=== PATIENT | female | born 1950 | race Caucasian/White ===

== ENCOUNTER 2025-05-01 13:46 | Outpatient (AMB) | payer MEDICARE, BC, SELFPAY ==
--- NOTE | 2025-05-01 13:51 | MHC.OFFVIS ---
Vital Signs 05/01/25 13:55 Height 5 ft 5 in Weight 176 lb 5.917 oz BMI 29.3 BP 138/82 Blood Pressure Location Lt brachial Position Sitting Pulse 79 Intake Visit Reasons: Esophageal hernia - r/s from 04/27 Intake Note: Lizabeth presents in the office as a new patient for a esophageal hernia. CC: States she was in the ED for a UTI and kidney stone. She states it was at [facility] in [place] - when they did the CT they found a para esophageal hernia. She has issues with eating - she gets full immediately. She has been diagnosed with the dumping syndrome - after eating she runsto the bathroom with diarrhea. Advertising Material Distributor Required: No Allergies clindamycin (From Cleocin) Allergy (Mild, Verified 05/01/25 13:55) Unknown metronidazole (From Flagyl) Allergy (Mild, Verified 05/01/25 13:55) Unknown HPI HPI Esophageal hernia - r/s from 04/27: Details: 75-year-old female here for initial evaluation of abdominal pain and an hiatal hernia discovered on an ER CAT scan. She is referred by [facility] who has not provided us with much medical background history. PMX Overweight-BMI 29 Migraines Peripheral vascular disease Fibromyalgia syndrome Nephrolithiasis Question ADHD Question depression Gastroparesis-followed by [facility] Atrophic vaginitis Positional tachycardia-negative dress echo 09/2024, negative stress test 06/2024 IBS * ALLERGIES CO Eliana-rash Flagyl-nausea * SURGICAL HISTORY ? Omi fund Ovarian cyst removed with a lot of adhesions cholecystectomy umbilical hernia repair Esophagogastroduodenoscopy-2016 [facility] COlonoscopy ? 2019 Varicose vein surgery-09/2019 * LABS: Provided by primary care office: 06/2024: Celiac screen is negative, unremarkable CBC, sed rate of 11, TSH 2.9, unremarkable renal panel, unremarkable hepatic panel, fasting glucose 90, lipase and amylase 20/40, mildly elevated total cholesterol of 238 with triglycerides at 01:26 REVIEW OF ESOPHAGOGASTRODUODENOSCOPY-2016 [facility] PROCEDURE IN DETAIL The regions examined were in the esophagus and 2nd portion of the duodenum. The findings were as follows: Exam of the esophagus was normal status post fundoplication, no residual hernia, fundoplication intact. Cold biopsy. Exam of the gastric cardia was normal. Procedure. None. Exam of the gastric fundus revealed a large amount of undigested food suggesting gastroparesis. Cold biopsy. Exam of the gastric antrum and pylorus was normal. Procedure: Cold biopsy for H pylori assay. Exam of the duodenal bulb was normal. Exam of the 2nd portion of the duodenum was normal. Follow-up recommended in the office with Gastroenterology and a gastric emptying study. * Surgical pathology 1. Duodenal biopsy -no pathologic abnormality -villous architecture is preserved 2. Stomach, antrum biopsy -antral mucosa with mild reactive/chemical gastropathy and mild inactive chronic gastritis 3. Gastroesophageal junction biopsy -squamocolumnar junction with reflux esophagitis -no evidence of complete intestinal metaplasia or dysplasia. H pylori assay is negative CT [facility] 03/31/2025 RESULT: CT Abdomen and Pelvis W/O Contrast CT of the abdomen and pelvis dated March 31, 2025. Comparison films are from October 26, 2016. HISTORY: Nausea and vomiting. Right flank pain. FINDINGS: CT imaging was performed with multislice acquisition from the dome of the diaphragm through the symphysis pubis without the use of oral or intravenous contrast material. Axial, coronal, and sagittal reconstruction was performed. A weight based protocol using automatic tube modulation was used to optimize exposure parameters. The liver is within normal limits for size. There is a simple cyst in the anterior segment of the right lobe of the liver measuring 2.5 cm on image 40 of series 2. This is stable. The gallbladder is surgically absent. The spleen is normal in size and appearance. The pancreas is normal in size and appearance. The adrenal glands are normal in size and appearance. The kidneys are normal in size. There is no evidence of calculus or obstruction. No intra-abdominal or retroperitoneal mass or lymphadenopathy is seen. No free air or free fluid is identified. Examination of the pelvis shows no evidence of mass or lymphadenopathy. No free air or free fluid is seen. Reproductive organs are age-appropriate. Although not contrast opacified, loops of bowel are normal in size. There is no evidence of obstruction. The appendix is normal. The body wall is intact. Atherosclerotic calcifications are present in the aorta. There is a moderate-sized type 3 paraesophageal hernia. There is a minimal left pleural effusion and a minimal pericardial effusion. Degenerative changes are noted in the spine. IMPRESSION: Minimal left pleural effusion and pericardial effusion. No evidence of renal calculus or obstruction. Stable hepatic cyst. Type III paraesophageal hernia. TODAY'S VISIT [facility] Medical History (Updated 05/01/25 @ 17:21 by CARLOS Márquez) History of cardiovascular stress test Surgical History (Updated 05/01/25 @ 17:21 by CARLOS Márquez) History of Omi fundoplication History of surgery on wrist Hx of tonsillectomy Hx of cholecystectomy Hx of emergency section History of removal of ovarian cyst Hx of colonoscopy History of esophagogastroduodenoscopy (EGD) Review of Systems Const Denies fatigue, Denies fever(s), Denies night sweats, Reports poor appetite and Denies weight loss Eyes Details: glasses Reports requires corrective lenses ENT Reports Normal hearing present, Denies dental pain, Denies dysphagia, Denies hearing loss, Denies mouth pain, Denies odynophagia, Denies throat swelling, Denies tongue swelling and Reports other (Dentition adequate) Card Reports no additional complaints Resp Reports no additional complaints GI Details: Reports abdominal pain, Denies melena, Denies bloating, Denies hematochezia, Denies constipation, Denies GI cramping, Denies dysphagia, Denies excessive flatus, Reports early satiety, Reports heartburn, Reports diarrhea, Denies nausea, Denies odynophagia, Denies vomiting and Denies hematemesis Skin/Breast Denies pruritus, Denies lesions, Denies rash and Denies jaundice Neuro Reports Normal hearing present and Denies Abnormal speech present Endo Denies fatigue Aller/Immun Denies throat swelling and Denies tongue swelling Physical Exam Vital Signs: Last Vital Signs Pulse 79 05/01/25 13:55 BP 138/82 05/01/25 13:55 BMI result Body Mass Index 29.3 Const General: cooperative, no acute distress, well developed and well groomed Nutritional Appearance: well nourished and obese Orientation/consciousness: oriented to person, oriented to place and oriented to time Limitations: No language barrier HEENT Head: Yes normocephalic and Yes atraumatic Eyes General: appearance normal, both eyes and all related structures Pupils: Equal, round and reactive pupils present Neck Neck: Yes normal visual inspection and Yes no lymphadenopathy Thyroid: Thyroid normal Resp Effort & Inspection: normal respiratory effort and able to speak in complete sentences Auscultation: clear to auscultation bilaterally Cardio Rate: regular rate Rhythm: regular rhythm Heart sounds: Normal, physiologic split S2 sound present Peripheral pulses: radial pulses present and posterior tibial pulses present GI Inspection: No distended, No Abdominal panniculus present and Yes obesity Palpation (GI): Soft to palpation, Tenderness to palpation present (GI) in the epigastrum, no guarding, not rigid and No hepatosplenomegaly present Percussion: Yes normal to percussion Auscultation: normal bowel sounds Rectal Exam - Female: deferred Abdomen image:  1. surgical sscar Skin General skin exam: no rashes or lesions noted, turgor normal, skin not dry, no jaundice, No spider nevi and no striae Rashes: no rashes Nails: normal Neuro General: oriented to person, oriented to place and oriented to time Cranial nerves: Yes Equal, round and reactive pupils present and Yes Normal hearing present Speech: No Abnormal speech present Extrem General: Yes normal to inspection, No clubbing, No cyanosis and Yes edema (right>left 2+) Psych Appearance: grossly normal and well kempt Mental Status: mental status grossly normal Speech and movement: Normal speech and movement present Affect: normal affect Attitude: cooperative Thought process: Normal thought process present and not confabulating Thought content: Normal thought content present Insight: Good insight present (Psych) Judgement: Good judgement present (Psych) Assessment & Plan Assessment & Plan (1) Post-cholecystectomy syndrome: Code(s): K91.5 - Postcholecystectomy syndrome Category: Medical (2) Early satiety: Code(s): R68.81 - Early satiety Category: Medical (3) Upper abdominal pain: Code(s): R10.10 - Upper abdominal pain, unspecified Category: Medical (4) Diabetes: Code(s): E11.9 - Type 2 diabetes mellitus without complications Category: Medical (5) Tachycardia: Code(s): R00.0 - Tachycardia, unspecified Category: Medical (6) Migraines: Code(s): G43.909 - Migraine, unspecified, not intractable, without status migrainosus Category: Medical (7) Primary fibromyalgia syndrome: Code(s): M79.7 - Fibromyalgia Category: Medical (8) Nephrolithiasis: Code(s): N20.0 - Calculus of kidney Category: Medical (9) Atrophic vaginitis: Code(s): N95.2 - Postmenopausal atrophic vaginitis Category: Medical Plan - The patient is a 75-year-old female presenting with gastrointestinal issues including chronic diarrhea, possible dumping syndrome, and upper abdominal pain with eating and early satiety. - She describes episodes of diarrhea occurring post cholecystectomy, often followed by symptoms resembling hypoglycemia. - The abdominal pain is described ?lack of baseball in my stomach? and is worsened with any meal eaten. - Past surgical history includes a Omi fundoplication in 2016, cholecystectomy, umbilical hernia repair, varicose vein surgery, and a vertical . - Diagnostic workups include a gastric emptying study initially suggesting gastroparesis, later argued to represent dumping syndrome. Her last gastric emptying study was about 10 years ago. She has a diabetic and not on any medications and there is evidence at [facility] that her A1c in July of 2024 was over 8%. - she is very concerned that she has another paraesophageal hernia as the Omi fundoplication was a very big surgery for her and she is not eager to undergo it again. The good news is she is not having any dysphagia, are unmanageable GERD or chest pain that would make me think she needed to consider urgent or impending surgery for this matter. I have reviewed her extensive records as much as are available to me from [facility] and [facility]. At this point I think she should be put on some sort of bile binding agent to settle her postprandial diarrhea and we will see how much this impacts her upper abdominal pain. She has never been on anything like cholestyramine her Carafate and will start her initially on cholestyramine. I also think it would be salas to get a hemoglobin A1c and a repeat the gastric emptying study in case the upper abdominal pain is not affected in any way by controlling the diarrhea. She is quite thankful that I have gone over the past records and that we are starting with simple tests and interventions and will build on this depending on her response. Return office visit in 4 weeks Orders: Orders NM gastric emptying study Today R10.10 - Upper abdominal pain, unspecified, R68.81 - Early satiety Hemoglobin A1c Today E11.9 - Type 2 diabetes mellitus without complications Medications: New cholestyramine (Cholestyramine Light) administer w/meal; avoid other meds within 1hr before or 4-6hr after dose 4 grams PO BID 60 ea 6RF K91.5 - Postcholecystectomy syndrome Coding Level of Care Code New Pt Level 3 (21836) Diagnoses Post-cholecystectomy syndrome K91.5 Early satiety R68.81 Upper abdominal pain R10.10 Diabetes E11.9 Tachycardia R00.0 Migraines G43.909 Primary fibromyalgia syndrome M79.7 Nephrolithiasis N20.0 Atrophic vaginitis N95.2
[2025-05-01 13:55] VITALS: BP 138/82; PULSE 79; BMI 29.3
--- OUTSIDE RECORDS SUMMARY | 2025-05-01 14:42 | XMS_ITS | Encounter Summary ---
Author Organization [facility] Address [address] [place] [address] [place] [address] Phone Care Team Providers Care Processing Mgr Name Role Phone Kira Valencia DO Primary Care Provider [phone] Usha Salgado MACHINE STUFFER AUTOMATIC Primary Care Pro vider Encounter Details Date Type Department Care Team (Latest Contact Info) Description 03/27/2019 Ancillary Orders Virtual Department [address] [place] [address] Kira Valencia DO [address] [place] [address] [place] [address] [email or web address] Asymptomatic age-related postmenopausal state Social History Tobacco Use Types Packs/Day Years Used Date Smoking Tobacco: Never Smokeless Tobacco: Never Alcohol Use Standard Drinks/Week Comments Yes 0 (1 standard drink = 0.6 oz pur e alcohol) Comments Unknown Sex and Gender Information Value Date Recorded Sex Assigned at Female 09/02/2018 9:31 AM EST Legal Sex Female 10:00 PM EDT Gender Identity Female 09/02/2018 9:31 AM EST Sexual Orientation Straight 07/11/2021 1: 21 PM EDT documented as of this encounter Plan of Treatment Not on file documented as of this encounter Visit Diagnoses Diagnosis Asymptomatic age-related postmenopausal state documented in this encounter Care Teams Processing Mgr Relationship Specialty Start Date End Date Kira Valencia DO [address] [place] [address] PCP - General Internal Medicine 09/02/18 10/24/23 Usha Salgado NP [address] [place] [id number] [email or web address] PCP - General Nurse Practitioner 10/25/23 documented as of this encounter Additional Source Comments The information contained in this document represents components of the legal health record. It is not the complete legal health record.[facility]
--- OUTSIDE RECORDS SUMMARY | 2025-05-01 14:42 | XMS_ITS | Encounter Summary ---
Author Organization [facility] Address [address] [place] [address] [place] [address] Phone Care Team Providers Care Application Infrastructure Engineer Name Role Phone Kira Valencia DO Primary Care Provider [phone] Usha Salgado NP Primary Care Pro vider Encounter Details Date Type Department Care Team (Late st Contact Info) Description 08/21/2021 Procedure Pass [facility] [address] [place] [address] Social History Tobacco Use Types Packs/Day Years [...] documented as of this encounter Visit Diagnoses Not on filedocumented in this encounter Care Teams Application Infrastructure Engineer Relationship Specialty Start Date End Date Kira Valencia DO [address] [place] [address] PCP - General Internal Medicine 09/02/18 10/24/23 UtUsha escalona NP [address] [place] [address] [email or web address] PCP - General Nurse Practitioner 10/25/23 documented as of this encounter Additional Source Comments The information contained in this document represents components of the legal health record. It is not the complete legal health record.[facility]
--- OUTSIDE RECORDS SUMMARY | 2025-05-01 14:42 | XMS_ITS | Encounter Summary ---
Author Organization [facility] Address [address] [facility] [address] [place] [address] Phone Care Team Providers Care Coiled Tubing Operator Name Role Phone Usha Salgado CHARTERED FINANCIAL ANALYST Primary Care Pro vider Encounter Details Date Type Department Care Team (Late st Contact Info) Description 06/06/2024 Procedure Pass Echo Lab [place] [address] [place] [address] Social History Tobacco Use Types Packs/Day Years Used Date Smoking Tobacco: Never Smokeless Tobacco: Never Alcohol Use Standard Drinks/Week Comments Yes 0 (1 standard drink = 0.6 oz pur e alcohol) Education Answer Date Recorded Are you interested in more education? Not on perico e 01/01/2023 Are you concerned about learning? Not on file 01/01/2023 No 01/01/2023 No 01/01/2023 Digital Access Answer Date Recorded No 01/30/2023 No 01/30/2023 No 01/30/2023 Reliable internet access at home? Not on file 01/30/2023 Device with a working camera? Not on file Comments Unknown Sex and Gender Information Value [...] on filedocumented in this encounter Care Teams Coiled Tubing Operator Relationship Specialty Start Date End Date Usha Salgado NP [address] [place] [address] [email or web address] PCP - General Nurse Practitioner 10/25/23 documented as of this encounter Additional Source Comments The information contained in this document represents components of the legal health record. It is not the complete legal health record.[facility]
--- OUTSIDE RECORDS SUMMARY | 2025-05-01 14:42 | XMS_ITS | Encounter Summary ---
Author Organization [facility] Address [address] [facility] [address] [place] [address] Phone Care Team Providers Care Central Sterilization Technician Name Role Phone Kira Valencia DO Primary Care Provider [phone] Usha Salgado NP Primary Care Pro vider Reason for Referral * Outpatient Procedure - Closed Specialty Diagnoses / Procedures Referred By Shi scott Referred To Contact Diagnoses Cardiac murmur, unspecified Procedures Adult Echo TTE Kira Valencia DO Phone: tel: fax: mailto: Referral ID Status Reason Start Date Expiration Date Visits Re quested Visits Authorized [id number] Closed 08/21/2021 08/21/2022 1 1 Encounter Details Date Type Department Care Team (Latest Contact Info) Description 08/21/2021 Transcribe Orders Virtual Department [address] [place] [address] Kira Valencia DO [address] [place] [address] [email or web address] Cardiac murmur, unspecified Social History Tobacco Use Types Packs/Day Years [...] on file documented as of this encounter Results * TTE COMPREHENSIVE (12/01/2021 8:23 AM EDT) Body Surface Area 1.91 m2 Height 165 cm Weight 84 kg Systolic BP 122 mmHg Diastolic BP 78 mmHg Left Atrium Dimension Anterior-Posterior 25 15 - 40 mm Aortic Valve Peak Velocity 155.0 cm/s Aortic Valve Peak Gradient 10 mmHg Aortic Sinus Diameter 24 mm Ascending Aorta Diameter 22 mm Inferior Vena Cava Diameter 12 0 - 21 mm Interventricular Septum Thickness 9 mm Left Ventricle Internal Diameter End Diastole 36 37 - 52 mm Left Ventricle Internal Diameter End Systole 21 22 - 35 mm Left Ventricular Outflow Tract Diameter 15.0 mm LVOT VTI REST 224 mm Left Ventricular Outflow Tract Velocity 1.0 m/s Left Ventricular Outflow Tract Gradient at Rest 4 mmHg Left Ventricular Posterior Wall Thickness 8 mm Ejection Fraction 65 50 - 75 Percent Mitral Valve A Wave Speed 77.1 cm/s Mitral Valve E Wave Speed 73.3 cm/s Right Ventricle Basal Diameter 21.5 25 - 41 mm Tricuspid Valve Peak Velocity 1.9 m/s Raw LV EF% 66 % Left Atrial Volume 26 mL Left Atrial Volume Index 13.61 mL/m2 Right Ventricle Peak Systolic Pressure 17 mmHg Right Ventricle TAPSE 13.0 mm Right Atrium Pressure Estimated 3 mmHg Right Ventricle to Right Atrium Pressure Gradient 14 mmHg Aortic Valve Sinus Index 1 13 19 - 27 mm Ascending Aorta Diameter 12 mm Aortic Sinus Index 13 mm Ascending Aorta Index 12 mm Anatomical Region Laterality Modality Heart Ultrasound Narrative 12/01/2021 3:38 PM EDT Normal LV size and wall thickness. LV systolic function is hyperdynamic with EF 60-65%. There are no clear wall motion abnormalities. Normal diastolic function. Normal RV size and function. There is no hemodynamically significant valvular disease. No prior study for comparison. Left Ventricle The left ventricular cavity size and wall thickness are normal. Left ventricular systolic function is normal. The estimated ejection fraction is 65% (Normal 50- 75%). The left ventricular ejection fraction was measured by the single dimension method. Left ventricular diastolic function appears within normal limits for age. Right Ventricle The right ventricular size is normal. Right ventricular systolic function is at the lower limits of normal. Left Atrium The left atrium is normal in size. The left atrial anterior-posterior dimension measures 25 mm (normal 15-40 mm). The LA volume is 26 mL. The LA volume index is 13.61 mL/m2 (normal indexed value is 16-34 mL/m2). The pulmonary venous flow profiles are normal. Right Atrium The right atrium is normal in size. The IVC is normal in size (2.1cm or less). The IVC measures 12 mm (normal <=21 mm). The IVC demonstrates normal collapse with inspiration which is consistent with normal RA pressure. Mitral Valve The E/A ratio is 1.0. The Med E' Homero is 5.7 cm/s and the Lat E' Homero is 6.9 cm/s. The E/E' AVG is 11.7. There is no evidence of mitral stenosis. There is no significant mitral regurgitation detected by spectral and color Doppler. Tricuspid Valve There is no evidence of tricuspid stenosis. There is evidence of trace tricuspid regurgitation by color and spectral Doppler. Normal pulmonary pressure. The RV systolic pressure was estimated from the peak TV regurgitant velocity. The estimated RV systolic pressure is 17 mmHg assuming a right atrial pressure of 3 mmHg. The calculated peak RV-RA pressure gradient is 14 mmHg. Aortic Valve The aortic valve is tricuspid. There is no evidence of valvular aortic stenosis. The peak aortic valve gradient is 10 mmHg. There is no evidence of aortic regurgitation by color and spectral Doppler. The visualized portions of the thoracic aorta appear normal. Pulmonic Valve There is no evidence of pulmonic stenosis. There is no evidence of pulmonary regurgitation by color and spectral Doppler. Pericardium There is no evidence of pericardial effusion. Interatrial Septum The interatrial septum appears normal. General Findings The image quality was fair (3). Technique(s) used in the evaluation: Color flow Doppler and Spectral Doppler. The predominant rhythm during the study was sinus. Comparison Findings No prior studies for comparison. Kira Yanes Furscottylo DO CV ECHO ORDERABLES Final Resul t documented in this encounter Visit Diagnoses Diagnosis Cardiac murmur, unspecified Cardiac murmur, unspecified documented in this encounter Care Teams Central Sterilization Technician Relationship Specialty Start Date End Date Kira Valencia DO [address] [place] [id number] PCP - General Internal Medicine 09/02/18 10/24/23 Usha Salgado NP [address] [place] [address] [email or web address] PCP - General Nurse Practitioner 10/25/23 documented as of this encounter Additional Source Comments The information contained in this document represents components of the legal health record. It is not the complete legal health record.[facility]
--- OUTSIDE RECORDS SUMMARY | 2025-05-01 14:42 | XMS_ITS | Encounter Summary ---
Author Organization [facility] Address [address] [place] [address] Phone Care Team Providers Care Professor Of Exercise Science Name Role Phone GueroKira toth Farzana STEVE Primary Care Provider [phone] Usha Salgado WILDLIFE MANAGER Primary Care Pro vider Encounter Details Date Type Department Care Team (Late st Contact Info) Description 10/11/2023 Procedure Pass Non-Invasive Cardiology [address] [place] [address] Social History Tobacco Use Types Packs/Day Years [...] on filedocumented in this encounter Care Teams Professor Of Exercise Science Relationship Specialty Start Date End Date Kira Valencia DO [address] [place] [id number] PCP - General Internal Medicine 09/02/18 10/24/23 Usha Salgado NP [address] [place] [phone] [email or web address] PCP - General Nurse Practitioner 10/25/23 documented as of this encounter Additional Source Comments The information contained in this document represents components of the legal health record. It is not the complete legal health record.[facility]
--- OUTSIDE RECORDS SUMMARY | 2025-05-01 14:42 | XMS_ITS | Clinical Summary ---
Author Organization [facility] Address [address] [place] [address] Phone Care Team Providers Care Bessemer Converter Operator Name Role Phone Usha Salgado INTERNET AND E BUSINESS PROJECT MANAGER Primary Care Pro vider Allergies Active Allergy Reactions Criticality Noted Date Comments Clindamycin Phosphate 09/02/2018 Metronidazole 09/02/2018 Medications estradiol (ESTRACE) 0.01 % (0.1 mg/gram) vaginal cream Place 2 g vaginally 2 (two) times a week. Active nortriptyline (PAMELOR) 10 MG capsule Take 30 mg by mouth nightly. Active ibuprofen (ADVIL,MOTRIN) 600 MG tablet Take 1 tablet (600 mg total) by mouth every 6 (six) hours as needed for pain (specific location in comments). 20 tablet 8 Active Additional Information Patient not taking.Reported on 04/10/2022 tamsulosin (FLOMAX) 0.4 mg Cap Take 1 capsule (0.4 mg total) by mouth daily. 4 capsule 8 Active Additional Information Patient not taking.Reported on 04/10/2022 HYDROmorphone (DILAUDID) 2 MG tablet Take 1 tablet (2 mg total) by mouth every 4 (four) hours as needed for pain (specific location in comments) (severe pain - no drinking, driving or operating heavy machinery). Pt. may request partial fill 12 tablet 8 Active Additional Information Patient not taking.Reported on 04/10/2022 methylphenidate HCl 18 MG CR tablet Take 18 mg by mouth daily. 2 Active buPROPion (WELLBUTRIN XL) 300 MG ER 24 hr tablet Take 300 mg by mouth daily. Active naproxen (NAPROSYN) 500 MG tablet Take 1 tablet (500 mg total) by mouth 2 (two) times a day for 3 days. Then twice daily as needed for pain, inflammation 20 tablet 2 Active HYDROcodone-servando taminophen (NORCO) 5-325 mg per tablet Take 1 tablet by mouth every 6 (six) hours as needed for pain (specific location in comments) (left wrist fx). Avoid alcohol, working, driving,machiner y while taking.Caution drowsiness,falls .May partial fill. 15 tablet 2 Active Active Problems No known active problems Social History Tobacco Use Types Packs/Day Years [...] Orientation Straight 07/11/2021 1: 21 PM EDT Last Filed Vital Signs Vital Sign Reading Time Taken Comments Blood Pressure 140/80 07/04/2024 11:30 AM EDT Pulse 90 04/10/2022 12:05 PM EDT Temperature 36.8 C (98.2 F) 04/10/2022 12:05 PM EDT Respiratory Rate 18 04/10/2022 12:05 PM EDT Oxygen Saturation 98% 07/04/2024 11:00 AM EDT Inhaled Oxygen Concentration - - Weight 74.4 kg (164 lb) 04/13/2022 3:15 PM EDT Height 165.1 cm (5' 5 ) 04/13/2022 3:15 PM EDT Body Mass Index 27.29 04/13/2022 3:15 PM EDT Plan of Treatment Health Maintenance Due Date Last Done Comments LIPID PANEL 1952 DEPRESSION SCREENING 1964 HEPATITIS C SCREENING 01/15/1970 MAMMOGRAM 1992 COLOGUARD 01/15/1997 COLONOSCOPY 01/15/1997 COLORECTAL CANCER SCREENING 01/15/1997 FIT TEST 01/15/1997 FOBT 01/15/1997 SIGMOIDOSCOPY 01/15/1997 VIRTUAL COLONOSCOPY 01/15/1997 OSTEOPOROSIS SCREENING INITIAL (ONE-TIME) 01/15/2017 COVID-19 VACCINE ( season) 2024 12/05/2021, 04/15/2021, 11/21/2020, Additional history exists Adult Td,Tdap Booster 02/10/2026 02/11/2016 RSV VACCINE (1 - 1-dose 75+ series) 01/15/2027 PNEUMOCOCCAL VACCINES (50+ years) Completed 11/24/2018, 10/18/2017 ZOSTER VACCINES Completed 02/03/2019, 10/08, 05/07/2016 SMOKING STATUS SCREENING (Once After 26 Yrs) Completed 04/10/2022 HEPATITIS A VACCINES Aged Out No long er eligible based on patient's age to complete this topic HIB VACCINES Aged Out No longer eligi ble based on patient's age to complete this topic MENINGOCOCCAL VACCINES (ACWY) Aged Out No longer eligible based on patient's age to complete this topic MENINGOCOCCAL VACCINES (B) Aged Out N o longer eligible based on patient's age to complete this topic Medical Devices Not on file Insurance MEDICARE PART A & B [employer] MEDEX SUPPLEMENT MEDICARE PART A & B [employer] MEDEX SUPPLEMENT MEDICARE PART A & B [employer] MEDEX SUPPLEMENT MEDICARE PART A & B [employer] MEDEX SUPPLEMENT MEDICARE PART A & B [employer] SUPPLEMENT MEDICARE PART A & B [employer] MEDEX SUPPLEMENT MEDICARE PART A & B Member Subscriber Plan / Payer (Ef fective 2017-Present) Name:Lizabeth Segvoia Member ID:[id number] Relation to Subscriber:Self Name:Lizabeth Segovia Subscriber ID:[id number] Payer ID:[id number] Group ID:Not on file Type:Medicare Address: [employer] [facility].[address] [address] [facility] MEDEX SUPPLEMENT MEDICARE PART A & B [employer] MEDEX SUPPLEMENT MEDICARE PART A & B [employer] MEDEX SUPPLEMENT Care Teams Bessemer Converter Operator Relationship Specialty Start Date End Date Usha Salgado NP [address] [place] [id number] [email or web address] PCP - General Nurse Practitioner 10/25/23 Additional Source Comments The information contained in this document represents components of the legal health record. It is not the complete legal health record.[facility]
--- OUTSIDE RECORDS SUMMARY | 2025-05-01 14:42 | XMS_ITS | Encounter Summary ---
Author Organization [facility] Address [address] [place] [address] Phone Care Team Providers Care Yard Operator Name Role Phone Kira Valencia DO Primary Care Provider [phone] Usha Salgado PEDIATRIC LICENSED PRACTICAL NURSE Primary Care Pro vider Encounter Details Date Type Department Care Team (Latest Contact Info) Description 03/27/[address] [facility] [address] [place] [address] [place] [address] Kira Valencia DO [address] [place] [address] [place] [address] [email or web address] Paresthesia of skin (Primary Dx) Social History Tobacco Use Types Packs/Day Years [...] documented as of this encounter Results * Magnesium (03/27/2019 2:47 PM EDT) MAGNESIUM 2.3 1.6 - 2.6 mg/dL [facility] Blood 03/27/2019 2:47 PM EDT 03/27/2019 2:53 PM EDT us Kira L Furcolo DO LAB BLOOD ORDERABLES Final Res ult Performing Organization Address [facility] Co de Phone Number [address] [address] * Basic metabolic panel (03/27/2019 2:47 PM EDT) SODIUM 140 133 - 146 mmol/L [facility] CHLORIDE 102 96 - 108 mmol/L [facility] POTASSIUM 4.2 3.3 - 5.1 mmol/L [facility] CO2 23 21 - 35 mmol/L [facility] BUN 12 6 - 19 mg/dL [facility] CREATININE 0.80 0.5 - 1.5 mg/dL [facility] GLUCOSE 94 70 - 99 mg/dL [facility] CALCIUM 9.4 8.4 - 10.3 mg/dL [facility] EGFR 76 >59 mL/min/1.7 3m2 [facility] Comment:If patient is black, multiply result by 1.159. Estimated glomerular filtration rate calculated using the CKD-EPI equation. ANION GAP 19 10 - 20 mmol/L [facility] Blood 03/27/2019 2:47 PM EDT 03/27/2019 2:53 PM EDT us Kira L Furcolo DO LAB BLOOD ORDERABLES Final Res ult Performing Organization Address [facility]/ZIP Co de Phone Number [address] [address] * CPK (creatine kinase) (03/27/2019 2:47 PM EDT) CREATINE KINASE 48 21 - 215 U/L [facility] Blood 03/27/2019 2:47 PM EDT 03/27/2019 2:53 PM EDT us Kira L Furcolo DO LAB BLOOD ORDERABLES Final Res ult Performing Organization Address [facility]/ZIP Co de Phone Number [address] [address] * Lyme screen with reflex to Western blot, blood (03/27/2019 2:47 PM EDT) Lyme AB IgG Negative Negative [facility] Lyme AB IgM Negative Negative [facility] Blood 03/27/2019 2:47 PM EDT 03/27/2019 2:53 PM EDT us Kira Jackcolo DO LAB BLOOD ORDERABLES Final Res ult Performing Organization Address [facility] Co de Phone Number [address] [address] * TSH (03/27/2019 2:47 PM EDT) TSH 1.62 0.27 - 4.20 uIU/mL [facility] Blood 03/27/2019 2:47 PM EDT 03/27/2019 2:53 PM EDT us Kira Valencia DO LAB BLOOD ORDERABLES Final Res ult Performing Organization Address [facility] Co de Phone Number [address] [address] * Vitamin B12 (03/27/2019 2:47 PM EDT) VITAMIN B12 395 232 - 1,245 pg/mL [facility] Blood 03/27/2019 2:47 PM EDT 03/27/2019 2:53 PM EDT us Kira Farzana Jackcolo DO LAB BLOOD ORDERABLES Final Res ult Performing Organization Address [facility]/ZIP Co de Phone Number [address] [address] documented in this encounter Visit Diagnoses Diagnosis Paresthesia of skin- Primary documented in this encounter Care Teams Yard Operator Relationship Specialty Start Date End Date Kira Valencia DO [address] [place] [id number] PCP - General Internal Medicine 09/02/18 10/24/23 Usha Salgado NP [address] [place] [phone] [email or web address] PCP - General Nurse Practitioner 10/25/23 documented as of this encounter Additional Source Comments The information contained in this document represents components of the legal health record. It is not the complete legal health record.[facility]
== END 2025-05-01 15:21 | disposition home or self-care (01) ==
PROVIDERS: PCP Family Medicine; Visit Provider Nurse Practitioner
DX: K91.5 Postcholecystectomy syndrome (principal); R68.81 Early satiety; R10.10 Upper abdominal pain, unspecified; E11.9 Type 2 diabetes mellitus without complications; R00.0 Tachycardia, unspecified; G43.909 Migraine, unspecified, not intractable, without status migrainosus; M79.7 Fibromyalgia; N20.0 Calculus of kidney; N95.2 Postmenopausal atrophic vaginitis
CPT/HCPCS: 99203

== ENCOUNTER → 2025-05-01 13:46 | Outpatient (BNVA) | payer MEDICARE, BC, SELFPAY | PROVIDERS: PCP Family Medicine; Visit Provider Nurse Practitioner | DX: K91.5 Postcholecystectomy syndrome (principal); R68.81 Early satiety; R10.10 Upper abdominal pain, unspecified; R00.0 Tachycardia, unspecified; E11.9 Type 2 diabetes mellitus without complications; G43.909 Migraine, unspecified, not intractable, without status migrainosus; M79.7 Fibromyalgia; N20.0 Calculus of kidney; N95.2 Postmenopausal atrophic vaginitis | CPT/HCPCS: 99202 ==

== ENCOUNTER 2025-05-30 13:58 | Outpatient (AMB) | payer MEDICARE, BC, SELFPAY ==
[2025-05-30 14:00] VITALS: BP 131/61; PULSE 78; BMI 29.1
--- NOTE | 2025-05-30 14:00 | A.OFFVIS_ITS ---
Vital Signs 05/30/25 14:00 Height 5 ft 5 in Weight 175 lb BMI 29.1 BP 131/61 Blood Pressure Location Rt brachial Position Sitting Pulse 78 Intake Visit Reasons: 4 week post donna Intake Note: Lizabeth returns to in office follow up of post-cholecystectomy syndrome. CC: Patient states that she has been taking digestive enzymes and her stools are better but still have some loose stools. She states that she's had a rash all over her face for about 4 days that looked like butterfly rash. She took Benadryl and is a little bit better. Thread Machine Operator Required: No Accompanied by: Self / Same As Patient Allergies clindamycin (From Cleocin) Allergy (Mild, Verified 05/30/25 14:17) Unknown metronidazole (From Flagyl) Allergy (Mild, Verified 05/30/25 14:17) Unknown HPI HPI 4 week post donna: Details: Assessment & Plan (1) Post-cholecystectomy syndrome: Code(s): K91.5 - Postcholecystectomy syndrome Category: Medical (2) Early satiety: Code(s): R68.81 - Early satiety Category: Medical (3) Upper abdominal pain: Code(s): R10.10 - Upper abdominal pain, unspecified Category: Medical (4) Diabetes: Code(s): E11.9 - Type 2 diabetes mellitus without complications Category: Medical (5) Tachycardia: Code(s): R00.0 - Tachycardia, unspecified Category: Medical (6) Migraines: Code(s): G43.909 - Migraine, unspecified, not intractable, without status migrainosus Category: Medical (7) Primary fibromyalgia syndrome: Code(s): M79.7 - Fibromyalgia Category: Medical (8) Nephrolithiasis: Code(s): N20.0 - Calculus of kidney Category: Medical (9) Atrophic vaginitis: Code(s): N95.2 - Postmenopausal atrophic vaginitis Category: Medical Plan - The patient is a 75-year-old female presenting with gastrointestinal issues including chronic diarrhea, possible dumping syndrome, and upper abdominal pain with eating and early satiety. - She describes episodes of diarrhea occurring post cholecystectomy, often foll owed by symptoms resembling hypoglycemia. - The abdominal pain is described ?like of baseball in my stomach? and is worsened with any meal eaten. - Past surgical history includes a Omi fundoplication in 2016, cholecystectomy, umbilical hernia repair, varicose vein surgery, and a vertical . - Diagnostic workups include a gastric emptying study initially suggesting gastroparesis, later argued to represent dumping syndrome. Her last gastric emptying study was about 10 years ago. She has a diabetic and not on any medications and there is evidence at [facility] that her A1c in July of 2024 was over 8%. - she is very concerned that she has another paraesophageal hernia as the Omi fundoplication was a very big surgery for her and she is not eager to undergo it again. The good news is she is not having any dysphagia, are unmanageable GERD or chest pain that would make me think she needed to consider urgent or impending surgery for this matter. I have reviewed her extensive records as much as are available to me from [facility] and [facility]. At this point I think she should be put on some sort of bile binding agent to settle her postprandial diarrhea and we will see how much this impacts her upper abdominal pain. She has never been on anything like cholestyramine her Carafate and will start her initially on cholestyramine. I also think it would be salas to get a hemoglobin A1c and a repeat the gastric emptying study in case the upper abdominal pain is not affected in any way by controlling the diarrhea. She is quite thankful that I have gone over the past records and that we are starting with simple tests and interventions and will build on this depending on her response. Return office visit in 4 weeks Orders: Orders NM gastric emptying study Today R10.10 - Upper abdominal pain, unspecified, R68.81 - Early satiety Hemoglobin A1c Today E11.9 - Type 2 diabetes mellitus without complications Medications: New cholestyramine (Cholestyramine Light) administer w/meal; avoid other meds within 1hr before or 4-6hr after dose 4 grams PO BID 60 ea 6RF K91.5 - Postcholecystectomy syndrome LABS: Not obtained Hemoglobin A1c GASTRIC EMPTYING STUDY Not obtained TODAY'S VISIT [facility] Medical History History of cardiovascular stress test Surgical History History of Omi fundoplication History of surgery on wrist Hx of tonsillectomy Hx of cholecystectomy Hx of emergency section History of removal of ovarian cyst Hx of colonoscopy History of esophagogastroduodenoscopy (EGD) Family History Father Skin cancer Maternal Grandmother Throat cancer Maternal Grandfather Lung cancer Paternal Grandmother Cancer Sister Basal cell carcinoma of skin Social History Alcohol intake: current Alcohol intake frequency: holidays/special occasions only Patient Tobacco Use Status: Never used Tobacco Review of Systems Const Denies fatigue, Denies fever(s), Denies night sweats, Denies poor appetite and Denies weight loss Eyes Details: glasses Reports requires corrective lenses ENT Reports Normal hearing present, Denies dental pain, Denies dysphagia, Denies hearing loss, Denies mouth pain, Denies odynophagia, Denies throat swelling, Denies tongue swelling and Reports other (Dentition adequate) Card Reports no additional complaints Resp Reports no additional complaints GI Details: Denies abdominal pain, Denies melena, Reports bloating, Denies hematochezia, Denies constipation, Denies GI cramping, Denies dysphagia, Denies excessive flatus, Denies early satiety, Denies heartburn, Denies diarrhea, Reports loose stools, Denies nausea, Denies odynophagia, Denies vomiting and Denies hematemesis Skin/Breast Denies pruritus, Denies lesions, Denies rash and Denies jaundice Neuro Reports Normal hearing present and Denies Abnormal speech present Endo Denies fatigue Aller/Immun Denies throat swelling and Denies tongue swelling Physical Exam Vital Signs: Last Vital Signs Pulse 78 05/30/25 14:00 BP 131/61 05/30/25 14:00 BMI result Body Mass Index 29.1 Const General: cooperative, no acute distress, well developed and well groomed Nutritional Appearance: well nourished and overweight Orientation/consciousness: oriented to person, oriented to place and oriented to time Limitations: No language barrier HEENT Head: Yes normocephalic and Yes atraumatic Eyes General: appearance normal, both eyes and all related structures Pupils: Equal, round and reactive pupils present Neck Neck: Yes normal visual inspection and Yes no lymphadenopathy Thyroid: Thyroid normal Resp Effort & Inspection: normal respiratory effort and able to speak in complete sentences Auscultation: clear to auscultation bilaterally Cardio Rate: regular rate Rhythm: regular rhythm Heart sounds: Normal, physiologic split S2 sound present Peripheral pulses: radial pulses present and posterior tibial pulses present GI Inspection: No distended, No Abdominal panniculus present and Yes obesity Palpation (GI): Soft to palpation, nontender, no guarding, not rigid and No hepatosplenomegaly present Percussion: Yes normal to percussion Auscultation: normal bowel sounds Rectal Exam - Female: deferred Skin General skin exam: no rashes or lesions noted, turgor normal, skin not dry, no jaundice, No spider nevi and no striae Rashes: no rashes Nails: normal Neuro General: oriented to person, oriented to place and oriented to time Cranial nerves: Yes Equal, round and reactive pupils present and Yes Normal hearing present Speech: No Abnormal speech present Extrem General: Yes normal to inspection, No clubbing, No cyanosis and No edema Psych Appearance: grossly normal and well kempt Mental Status: mental status grossly normal Speech and movement: Normal speech and movement present Affect: normal affect Attitude: cooperative Thought process: Normal thought process present and not confabulating Thought content: Normal thought content present Insight: Good insight present (Psych) Judgement: Good judgement present (Psych) Assessment & Plan Assessment & Plan (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 - She reports ongoing loose stools, which have shown slight improvement with the use of digestive enzymes. - Previously noted symptoms include nausea with sweating and palpitations. Current treatment appears to improve these issues. - Difficulty managing previous medication regime with cholestyramine, leading to discontinuation. We will now move on to a trial of Carafate and she was instructed how to take this medication so that it does not interfere with any of her other regimen. - Pending further assessment with a gastric emptying study and lab work, both of which have been delayed due to personal circumstances and communication issues. Return office visit in 4 weeks LABS: Not obtained Hemoglobin A1c GASTRIC EMPTYING STUDY Not obtained Medications: New sucralfate (Carafate) 2 grams (2 x 1 gram) PO QNOON 60 tabs 6RF K91.5 - Postcholecystectomy syndrome Discontinued cholestyramine (Cholestyramine Light) administer w/meal; avoid other meds within 1hr before or 4-6hr after dose Discontinued Reason: Doctor's Order 4 grams PO BID 60 ea 6RF K91.5 - Postcholecystectomy syndrome Coding Level of Care Code Est Pt Level 3 (25878) Diagnoses Post-cholecystectomy syndrome K91.5
--- OUTSIDE RECORDS SUMMARY | 2025-05-30 16:28 | XMS_ITS | Encounter Summary ---
Author Organization [facility] Address [address] [place] [address] Phone Care Team Providers Care Mortuary Beautician Name Role Phone Kira Valencia DO Primary Care Provider [phone] Usha Salgado MOTOR VEHICLE ASSEMBLER Primary Care Pro vider Encounter Details Date Type Department Care Team (Latest Contact Info) Description 03/27/2019 Transcribe Orders [facility] [address] [place] [address] [place] [address] Kira Valencia DO [address] [place] [address] [place] [address] [email or web address] Paresthesia of skin (Primary Dx) Social [...] EDT) MAGNESIUM 2.3 1.6 - 2.6 mg/dL [facility] Blood 03/27/2019 2:47 PM EDT 03/27/2019 2:53 PM EDT us Kira L Furcolo DO LAB BLOOD ORDERABLES Final Res ult Performing Organization Address [facility] Co de Phone Number [address] [address] * Basic metabolic panel (03/27/2019 2:47 PM EDT) SODIUM 140 133 - 146 mmol/L [facility] CHLORIDE 102 96 - 108 mmol/L [facility] POTASSIUM 4.2 3.3 - 5.1 mmol/L [facility] CO2 23 21 - 35 mmol/L [facility] BUN 12 6 - 19 mg/dL [facility] CREATININE 0.80 0.5 - 1.5 mg/dL [facility] GLUCOSE 94 70 - 99 mg/dL [facility] CALCIUM 9.4 8.4 - 10.3 mg/dL [facility] EGFR 76 >59 mL/min/1.7 3m2 [facility] Comment:If patient is black, multiply result by 1.159. Estimated glomerular filtration rate calculated using the CKD-EPI equation. ANION GAP 19 10 - 20 mmol/L [facility] Blood 03/27/2019 2:47 PM EDT 03/27/2019 2:53 PM EDT us Kira L Furcolo DO LAB BLOOD ORDERABLES Final Res ult Performing Organization Address [facility]/ZIP Co de Phone Number [address] [address] * CPK (creatine kinase) (03/27/2019 2:47 PM EDT) CREATINE KINASE 48 21 - 215 U/L [facility] Blood 03/27/2019 2:47 PM EDT 03/27/2019 2:53 PM EDT us Kira L Furcolo DO LAB BLOOD ORDERABLES Final Res ult Performing Organization Address [facility]/ZIP Co de Phone Number [address] [address] * Lyme screen with reflex to Western blot, blood (03/27/2019 2:47 PM EDT) Lyme AB IgG Negative Negative [facility] Lyme AB IgM Negative Negative [facility] Blood 03/27/2019 2:47 PM EDT 03/27/2019 2:53 PM EDT us Kira Jackcolo DO LAB BLOOD ORDERABLES Final Res ult Performing Organization Address [facility] Co de Phone Number [address] [address] * TSH (03/27/2019 2:47 PM EDT) TSH 1.62 0.27 - 4.20 uIU/mL [facility] Blood 03/27/2019 2:47 PM EDT 03/27/2019 2:53 PM EDT us Kira Valencia DO LAB BLOOD ORDERABLES Final Res ult Performing Organization Address [facility] Co de Phone Number [address] [address] * Vitamin B12 (03/27/2019 2:47 PM EDT) VITAMIN B12 395 232 - 1,245 pg/mL [facility] Blood 03/27/2019 2:47 PM EDT 03/27/2019 2:53 PM EDT us Kira Farzana Jackcolo DO LAB BLOOD ORDERABLES Final Res ult Performing Organization Address [facility]/ZIP Co de Phone Number [address] [address] documented in this encounter Visit Diagnoses Diagnosis Paresthesia of skin- Primary documented in this encounter Care Teams Mortuary Beautician Relationship Specialty Start Date End Date Kira Valencia DO [address] [place] [address] PCP - General Internal Medicine 09/02/18 10/24/23 Usha Salgado NP [address] [place] [id number] [email or web address] PCP - General Nurse Practitioner 10/25/23 documented as of this encounter Additional Source Comments The information contained in this document represents components of the legal health record. It is not the complete legal health record.[facility]
--- OUTSIDE RECORDS SUMMARY | 2025-05-30 16:28 | XMS_ITS | Encounter Summary ---
Author Organization [facility] Address [address] [facility] [address] [place] [address] Phone Care Team Providers Care International Freight Forwarder Name Role Phone Usha Salgado OFFICE SUPPORT ASSOCIATE Primary Care Pro vider Encounter Details Date Type Department Care Team (Late st Contact Info) Description 06/06/2024 Procedure Pass Echo Lab [place] [address] [place] [address] Social History Tobacco Use Types Packs/Day Years [...] on filedocumented in this encounter Care Teams International Freight Forwarder Relationship Specialty Start Date End Date Usha Salgado NP [address] [place] [address] [email or web address] PCP - General Nurse Practitioner 10/25/23 documented as of this encounter Additional Source Comments The information contained in this document represents components of the legal health record. It is not the complete legal health record.[facility]
--- OUTSIDE RECORDS SUMMARY | 2025-05-30 16:28 | XMS_ITS | Encounter Summary ---
Author Organization [facility] Address [address] [facility] [address] [place] [address] Phone Care Team Providers Care Board Liner Operator Name Role Phone Kira Valencia DO Primary Care Provider [phone] Usha Salgado NP Primary Care Pro vider Reason for Referral * Outpatient Procedure - Closed Specialty Diagnoses / Procedures Referred By Shi scott Referred To Contact Diagnoses Cardiac murmur, unspecified Procedures Adult Echo TTE Kira Valencia DO Phone: tel: fax: mailto: Referral ID Status Reason Start Date Expiration Date Visits Re quested Visits Authorized [id number] Closed 08/21/2021 08/21/2022 1 1 Encounter Details Date Type Department Care Team (Latest Contact Info) Description 08/21/2021 Transcribe Orders Virtual Department [address] [place] [address] Kira Valencia DO [address] [place] [address] [email or web address] Cardiac murmur, unspecified Social History Tobacco Use [...] unspecified documented in this encounter Care Teams Board Liner Operator Relationship Specialty Start Date End Date Kira Valencia DO [address] [place] [address] PCP - General Internal Medicine 09/02/18 10/24/23 Usha Salgado NP [address] [place] [address] [email or web address] PCP - General Nurse Practitioner 10/25/23 documented as of this encounter Additional Source Comments The information contained in this document represents components of the legal health record. It is not the complete legal health record.[facility]
--- OUTSIDE RECORDS SUMMARY | 2025-05-30 16:28 | XMS_ITS | Clinical Summary ---
Author Organization [facility] Address [address] [place] [address] Phone Care Team Providers Care Conveyor Installer Name Role Phone Usha Salgado DIGITAL ENGINEER Primary Care Pro vider Allergies Active Allergy [...] COLONOSCOPY 01/15/1997 OSTEOPOROSIS SCREENING INITIAL (ONE-TIME) 01/15/2017 INFLUENZA VACCINE (#1) 2025 , 05/06/2020, 05/29/2019, Additional history exists COVID-19 VACCINE ( season) 2025 12/05/2021, 04/15/2021, 11/21/2020, Additional history exists Adult [...] file Insurance MEDICARE PART A & B [employer] MEDEX SUPPLEMENT MEDICARE PART A & B [employer] MEDEX SUPPLEMENT MEDICARE PART A & B [employer] MEDEX SUPPLEMENT MEDICARE PART A & B [employer] MEDEX SUPPLEMENT MEDICARE PART A & B [employer] MEDEX SUPPLEMENT MEDICARE PART A & B [employer] MEDEX SUPPLEMENT MEDICARE PART A & B [employer] MEDEX SUPPLEMENT MEDICARE PART A & B [employer] MEDEX SUPPLEMENT MEDICARE PART A & B [employer] MEDEX SUPPLEMENT Care Teams Conveyor Installer Relationship Specialty Start Date End Date Usha Salgado NP [address] [place] [address] [email or web address] PCP - General Nurse Practitioner 10/25/23 Additional Source Comments The information contained in this document represents components of the legal health record. It is not the complete legal health record.[facility]
--- OUTSIDE RECORDS SUMMARY | 2025-05-30 16:28 | XMS_ITS | Encounter Summary ---
Author Organization [facility] Address [address] [place] [address] [place] [address] Phone Care Team Providers Care Dog Obedience Instructor Name Role Phone Kira Valencia DO Primary Care Provider [phone] Usha Salgado FOREST MANAGEMENT PROFESSOR Primary Care Pro vider Encounter Details Date Type Department Care Team (Latest Contact Info) Description 03/27/2019 Ancillary Orders Virtual Department 30 [place] [address] Kira Valencia DO [address] [place] [address] [place] [address] [email or web address] Asymptomatic age-related postmenopausal state Social History [...] state documented in this encounter Care Teams Dog Obedience Instructor Relationship Specialty Start Date End Date Kira Valencia DO [address] [place] [address] PCP - General Internal Medicine 09/02/18 10/24/23 Usha Salgado NP [address] [place] [address] [email or web address] PCP - General Nurse Practitioner 10/25/23 documented as of this encounter Additional Source Comments The information contained in this document represents components of the legal health record. It is not the complete legal health record.[facility]
--- OUTSIDE RECORDS SUMMARY | 2025-05-30 16:28 | XMS_ITS | Encounter Summary ---
Author Organization [facility] Address [address] [place] [address] [place] [address] Phone Care Team Providers Care City Engineer Name Role Phone Kira Valencia DO Primary Care Provider [phone] Usha Salgado NP Primary Care Pro vider Encounter Details Date Type Department Care Team (Late st Contact Info) Description 08/21/2021 Procedure Pass [facility] Echo Lab 30 [place] [address] Social History Tobacco Use Types Packs/Day Years [...] on filedocumented in this encounter Care Teams City Engineer Relationship Specialty Start Date End Date Kira Valencia DO [address] [place] [address] PCP - General Internal Medicine 09/02/18 10/24/23 UtUsha escalona NP [address] [place] [address] [email or web address] PCP - General Nurse Practitioner 10/25/23 documented as of this encounter Additional Source Comments The information contained in this document represents components of the legal health record. It is not the complete legal health record.[facility]
--- OUTSIDE RECORDS SUMMARY | 2025-05-30 16:28 | XMS_ITS | Encounter Summary ---
Author Organization [facility] Address [address] [facility] [address] [place] [address] Phone Care Team Providers Care Dimension Mill Worker Name Role Phone GueroKira toth Farzana STEVE Primary Care Provider [phone] Usha Salgado POWER EQUIPMENT TECHNOLOGY INSTRUCTOR Primary Care Pro vider Encounter Details Date Type Department Care Team (Late st Contact Info) Description 10/11/2023 Procedure Pass Non-Invasive Cardiology [address] [place] [address] Social History Tobacco Use Types Packs/Day Years [...] on filedocumented in this encounter Care Teams Dimension Mill Worker Relationship Specialty Start Date End Date Kira Valencia DO [address] [place] [address] PCP - General Internal Medicine 09/02/18 10/24/23 Usha Salgado NP [address] [place] [address] [email or web address] PCP - General Nurse Practitioner 10/25/23 documented as of this encounter Additional Source Comments The information contained in this document represents components of the legal health record. It is not the complete legal health record.[facility]
== END 2025-05-30 15:00 | disposition home or self-care (01) ==
PROVIDERS: PCP Nurse Practitioner Adult Health; Visit Provider Nurse Practitioner
DX: K91.5 Postcholecystectomy syndrome (principal)
CPT/HCPCS: 99213

== ENCOUNTER 2025-05-30 13:58 | Outpatient (REF) | payer MEDICARE, BC, SELFPAY ==
[2025-05-30 15:44] LABS: Hemoglobin A1C 152.0196 umol/L; Total Hemoglobin (HGBA1C) 3962.5058 umol/L
== END 2025-05-30 13:59 | disposition home or self-care (01) ==
LOC: HO.LAB 13:58
PROVIDERS: PCP Nurse Practitioner Adult Health; Visit Provider Nurse Practitioner
DX: K91.5 Postcholecystectomy syndrome (principal); E11.9 Type 2 diabetes mellitus without complications; G43.909 Migraine, unspecified, not intractable, without status migrainosus; M79.7 Fibromyalgia; N20.0 Calculus of kidney; N95.2 Postmenopausal atrophic vaginitis; R00.0 Tachycardia, unspecified
CPT/HCPCS: 36415; 83036; 99212

== ENCOUNTER → 2025-07-12 07:46 | Outpatient (BNV) | payer MEDICARE, BC, SELFPAY | PROVIDERS: PCP Nurse Practitioner Adult Health; Visit Provider Radiology Diagnostic Radiology | DX: R68.81 Early satiety (principal) | CPT/HCPCS: 78264 ==

== ENCOUNTER → 2025-07-12 07:46 | Outpatient (REF) | payer MEDICARE, BC, SELFPAY ==
--- NOTE | ~2025-07-12 | NM_ITS ---
EXAMINATION: PA RADIONUCLIDE SOLID FOOD GASTRIC EMPTYING 4-HOUR STUDY CLINICAL INFORMATION: R68.81 - Early satiety COMPARISON: There are no prior studies available for comparison. TECHNIQUE: A standard meal consisting of 4 oz of Egg Beaters brand tagged with 0.89 mCi Tc-99m Sulfur Colloid, 8 oz water and 2 slices of toast with jelly was administered orally to the patient. Images were obtained using a dual head gamma camera in the anterior and posterior projections over of the stomach immediately post ingestion and at hourly intervals up to 4 hours post ingestion. The anterior and posterior counts at each time interval were averaged using the geometric mean and expressed as percentage of the immediate post ingestion counts. FINDINGS: There is visualization of activity in the stomach immediately post ingestion. As the study progresses, there is clearance of activity from the stomach and visualization of progressively increasing small bowel activity. By the end of the study, there is almost no retention noted in the stomach. Retention in the stomach at each time interval was: 1 hour 76% (normal 37%-90%) 2 hours 37% (normal 30%-60%) 3 hours 11% 4 hours 3% (normal 0%-10%) PA/PA gastric emptying study IMPRESSION: Normal 4-hour solid food gastric emptying study. For solid meal, rapid gastric emptying is less than 30% at 60 minutes. Delayed gastric emptying criteria is more than 60% remaining at 120 minutes or more than 10% at 240 minutes. The 4-hour value is the best discriminator of a normal or abnormal result). Gastric emptying study grading per [employer] Consensus Recommendations in 2008 (https://tech.snmjournals.org/content/36/1/44) Grade 1 (mild retention): 11-20% at 4h Grade 2 (moderate retention): 21-35% at 4h Grade 3 (severe retention): 36-50% at 4h Grade 4 (very severe retention): >50% retention at 4h Electronically signed by: Deepak Barnes MD 07/12/2025 01:05 PM [facility]
--- OUTSIDE RECORDS SUMMARY | 2025-07-12 07:48 | XMS_ITS | Encounter Summary ---
Author Organization [facility] Address [address] [facility] [address] [place] [address] Phone Care Team Providers Care Dinkey Skinner Name Role Phone Usha Salgado BELL CLEANER Primary Care Pro vider Encounter Details Date Type Department Care Team (Late st Contact Info) Description 06/06/2024 Procedure Pass Echo Lab [place] [address] [place] [address] Social History Tobacco Use Types Packs/Day Years [...] on filedocumented in this encounter Care Teams Dinkey Skinner Relationship Specialty Start Date End Date Usha Salgado NP [address] [place] [address] [email or web address] PCP - General Nurse Practitioner 10/25/23 documented as of this encounter Additional Source Comments The information contained in this document represents components of the legal health record. It is not the complete legal health record.[facility]
--- OUTSIDE RECORDS SUMMARY | 2025-07-12 07:48 | XMS_ITS | Encounter Summary ---
Author Organization [facility] Address [address] [place] [address] [place] [address] Phone Care Team Providers Care Medical Library Assistant Name Role Phone Kira Valencia DO Primary Care Provider [phone] Usha Salgado CURTAIN STRETCHER ASSEMBLER Primary Care Pro vider Encounter Details Date Type Department Care Team (Latest Contact Info) Description 03/27/2019 Ancillary Orders Virtual Department 30 [place] [address] Kira Valencia DO [address] [place] [address] [email or web address] Asymptomatic age-related postmenopausal state Social History [...] state documented in this encounter Care Teams Medical Library Assistant Relationship Specialty Start Date End Date Kira Valencia DO [address] [place] [address] PCP - General Internal Medicine 09/02/18 10/24/23 Usha Salgado NP [address] [place] [address] [email or web address] PCP - General Nurse Practitioner 10/25/23 documented as of this encounter Additional Source Comments The information contained in this document represents components of the legal health record. It is not the complete legal health record.[facility]
--- OUTSIDE RECORDS SUMMARY | 2025-07-12 07:48 | XMS_ITS | Encounter Summary ---
Author Organization [facility] Address [address] [facility] [address] [place] [address] Phone Care Team Providers Care Freezer Worker Name Role Phone Kira Valencia DO Primary Care Provider [phone] Usha Salgado SATELLITE DISH TECHNICIAN Primary Care Pro vider Reason for Referral * Outpatient Procedure - Closed Specialty Diagnoses / Procedures Referred By Shi scott Referred To Contact Diagnoses Cardiac murmur, unspecified Procedures Adult Echo TTE Kira Valencia DO Phone: tel: fax: mailto: Referral ID Status Reason Start Date Expiration Date Visits Re quested Visits Authorized [id number] Closed 08/21/2021 08/21/2022 1 1 Encounter Details Date Type Department Care Team (Latest Contact Info) Description 08/21/2021 Transcribe Orders Virtual Department 30 [place] [address] Kira Valencia DO [address] [place] [address] [email or web address] Cardiac murmur, unspecified Social History Tobacco Use [...] Comparison Findings No prior studies for comparison. us Kira Yanes Furcolo DO CV ECHO ORDERABLES Final Resul t documented in this encounter Visit Diagnoses Diagnosis Cardiac murmur, unspecified Cardiac murmur, unspecified documented in this encounter Care Teams Freezer Worker Relationship Specialty Start Date End Date Kira Valencia DO [address] [place] [address] PCP - General Internal Medicine 09/02/18 10/24/23 Usha Salgado NP [address] [place] [address] [email or web address] PCP - General Nurse Practitioner 10/25/23 documented as of this encounter Additional Source Comments The information contained in this document represents components of the legal health record. It is not the complete legal health record.[facility]
--- OUTSIDE RECORDS SUMMARY | 2025-07-12 07:48 | XMS_ITS | Encounter Summary ---
Author Organization [facility] Address [address] [place] [address] [place] [address] Phone Care Team Providers Care Grocery Packer Name Role Phone Kira Valencia DO Primary Care Provider [phone] Usha Salgado NP Primary Care Pro vider Encounter Details Date Type Department Care Team (Late st Contact Info) Description 08/21/2021 Procedure Pass [facility] Echo Lab 30 [place] [address] Social History Tobacco Use Types Packs/Day Years [...] on filedocumented in this encounter Care Teams Grocery Packer Relationship Specialty Start Date End Date Kira Valencia DO [address] [place] [address] PCP - General Internal Medicine 09/02/18 10/24/23 UtUsha escalona NP [address] [place] [address] [email or web address] PCP - General Nurse Practitioner 10/25/23 documented as of this encounter Additional Source Comments The information contained in this document represents components of the legal health record. It is not the complete legal health record.[facility]
--- OUTSIDE RECORDS SUMMARY | 2025-07-12 07:48 | XMS_ITS | Encounter Summary ---
Author Organization [facility] Address [address] [facility] [address] [place] [address] Phone Care Team Providers Care Head Golf Coach Name Role Phone GueroKira toth Farzana STEVE Primary Care Provider Usha Salgado HSE SPECIALIST Primary Care Pro vider Encounter Details Date Type Department Care Team (Late st Contact Info) Description 10/11/2023 Procedure Pass Non-Invasive Cardiology [address] [place] [address] Social History Tobacco Use Types Packs/Day Years [...] on filedocumented in this encounter Care Teams Head Golf Coach Relationship Specialty Start Date End Date Kira Valencia DO [address] [place] [address] PCP - General Internal Medicine 09/02/18 10/24/23 Usha Salgado NP [address] [place] [address] [email or web address] PCP - General Nurse Practitioner 10/25/23 documented as of this encounter Additional Source Comments The information contained in this document represents components of the legal health record. It is not the complete legal health record.[facility]
--- OUTSIDE RECORDS SUMMARY | 2025-07-12 07:48 | XMS_ITS | Clinical Summary ---
Author Organization [facility] Address [address] [facility] [address] [place] [address] Phone Care Team Providers Care Channel Marketing Specialist Name Role Phone Usha Salgado RESEARCH INTERN Primary Care Pro vider Allergies Active Allergy [...] C SCREENING 01/15/1970 MAMMOGRAM 1992 COLOGUARD 01/15/1997 FIT TEST 01/15/1997 FOBT 01/15/1997 SIGMOIDOSCOPY 01/15/1997 VIRTUAL COLONOSCOPY 01/15/1997 OSTEOPOROSIS SCREENING INITIAL (ONE-TIME) 01/15/2017 INFLUENZA VACCINE (#1) 2025 , 05/06/2020, 05/29/2019, Additional history exists COVID-19 VACCINE ( season) 2025 12/05/2021, 04/15/2021, 11/21/2020, Additional history exists Adult Td,Tdap Booster 02/10/2026 02/11/2016 COLONOSCOPY 06/02/2026 07/26/2017 COLORECTAL CANCER SCREENING 06/02/2026 RSV VACCINE (1 - 1-dose 75+ series) [...] this topic Medical Devices Not on file Procedures Procedure Name Priority Date/Time Associated Diagnosis Comments COLONOSCOPY FOR RESULT ENTRY ONLY Routine 07/26/2017 from Last 3 Months or Most Recently Relevant to Health Maintenance Results * COLONOSCOPY FOR RESULT ENTRY ONLY (07/26/2017) Colonoscopy External us Historical Provider HEALTH MAINTENANCE Final Result from Last 3 Months or Most Recently Relevant to Health Maintenance Insurance MEDICARE PART A & B Member Subscriber Plan / Payer ( fective 2017-Present) Name:ZenaLizabeth babcock Member ID:[id number] Relation to Subscriber:Self Name:Lizabeth Segovia Subscriber ID:[id number] Payer ID:[id number] Group ID:Not on file Type:Medicare Address: [facility] [address] [place] [phone] [employer] MEDEX SUPPLEMENT MEDICARE PART A & B Member Subscriber Plan / Payer ( fective 2017-) Name:ZenaLizabeth babcock Member ID:[id number] Relation to Subscriber:Self Name:JustynaLizabeth gil Subscriber ID:[id number] Payer ID:[id number] Group ID:Not on file Type:Medicare Address: [facility] [address] [place] [phone] [employer] MEDEX SUPPLEMENT MEDICARE PART A & B Member Subscriber Plan / Payer (Ef fective 2017-) Name:Lizabeth Segovia Member ID:[id number] Relation to Subscriber:Self Name:Lizabeth Segovia Subscriber ID:[id number] Payer ID:[id number] Group ID:Not on file Type:Medicare Address: [facility] [employer] [facility] [employer] [facility] [address] [place] [phone] Sales Layer [employer] MEDEX SUPPLEMENT MEDICARE PART A & B [employer] MEDEX SUPPLEMENT MEDICARE PART A & B [employer] MEDEX SUPPLEMENT MEDICARE PART A & B [employer] MEDEX SUPPLEMENT MEDICARE PART A & B [employer] MEDEX SUPPLEMENT MEDICARE PART A & B Member Subscriber Plan / Payer ( fective 2017-) Name:Lizabeth Segovia Member ID:[id number] Relation to Subscriber:Self Name:Lizabeth Segovia Subscriber ID:[id number] Payer ID:[id number] Group ID:Not on file Type:Medicare Address: [facility] [address] [place] [phone] [employer] SUPPLEMENT MEDICARE PART A & B Member Subscriber Plan / Payer ( fective 2017-) Name:ZenaLizabeth babcock Member ID:[id number] Relation to Subscriber:Self Name:Lizabeth Segovia Subscriber ID:[id number] Payer ID:[id number] Group ID:Not on file Type:Medicare Address: [facility] [address] [place] [phone] [employer] MEDEX SUPPLEMENT Care Teams Channel Marketing Specialist Relationship Specialty Start Date End Date Usha Salgado NP [address] [place] [address] [email or web address] PCP - General Nurse Practitioner 10/25/23 Additional Source Comments The information contained in this document represents components of the legal health record. It is not the complete legal health record.[facility]
--- OUTSIDE RECORDS SUMMARY | 2025-07-12 07:48 | XMS_ITS | Encounter Summary ---
Author Organization [facility] Address [address] [facility] [address] [place] [address] Phone Care Team Providers Care Night Shift Supervisor Name Role Phone Kira Valencia DO Primary Care Provider [phone] Usha Salgado MEMBERSHIP DIRECTOR Primary Care Pro vider Encounter Details Date Type Department Care Team (Latest Contact Info) Description 03/27/2019 Transcribe Orders [address] [place] [address] Kira Valencia DO [address] [place] [address] [email or web address] Paresthesia of skin (Primary Dx) Social [...] EDT) MAGNESIUM 2.3 1.6 - 2.6 mg/dL [facility] Blood 03/27/2019 2:47 PM EDT 03/27/2019 2:53 PM EDT us Kira L Furcolo DO LAB BLOOD BKR ORDERABLES Final Result Performing Organization Address [facility] Co de Phone Number [address] [address] * Basic metabolic panel (03/27/2019 2:47 PM EDT) SODIUM 140 133 - 146 mmol/L [facility] CHLORIDE 102 96 - 108 mmol/L [facility] POTASSIUM 4.2 3.3 - 5.1 mmol/L [facility] CO2 23 21 - 35 mmol/L [facility] BUN 12 6 - 19 mg/dL [facility] CREATININE 0.80 0.5 - 1.5 mg/dL [facility] GLUCOSE 94 70 - 99 mg/dL [facility] CALCIUM 9.4 8.4 - 10.3 mg/dL [facility] EGFR 76 >59 mL/min/1.7 3m2 [facility] Comment:If patient is black, multiply result by 1.159. Estimated glomerular filtration rate calculated using the CKD-EPI equation. ANION GAP 19 10 - 20 mmol/L [facility] Blood 03/27/2019 2:47 PM EDT 03/27/2019 2:53 PM EDT us Kira L Furcolo DO LAB BLOOD BKR ORDERABLES Final Result Performing Organization Address [facility]/ZIP Co de Phone Number [address] [address] * CPK (creatine kinase) (03/27/2019 2:47 PM EDT) CREATINE KINASE 48 21 - 215 U/L [facility] Blood 03/27/2019 2:47 PM EDT 03/27/2019 2:53 PM EDT us Kira L Furcolo DO LAB BLOOD BKR ORDERABLES Final Result Performing Organization Address City/[facility]/ZIP Co de Phone Number [address] [address] * Lyme screen with reflex to Western blot, blood (03/27/2019 2:47 PM EDT) Lyme AB IgG Negative Negative [facility] Lyme AB IgM Negative Negative [facility] Blood 03/27/2019 2:47 PM EDT 03/27/2019 2:53 PM EDT us Kira L Furcolo DO LAB BLOOD BKR ORDERABLES Final Result Performing Organization Address [facility]/ZIP Co de Phone Number [address] [address] * TSH (03/27/2019 2:47 PM EDT) TSH 1.62 0.27 - 4.20 uIU/mL [facility] Blood 03/27/2019 2:47 PM EDT 03/27/2019 2:53 PM EDT us Kira L Furcolo DO LAB BLOOD BKR ORDERABLES Final Result Performing Organization Address [facility]/ZIP Co de Phone Number [address] [address] * Vitamin B12 (03/27/2019 2:47 PM EDT) VITAMIN B12 395 232 - 1,245 pg/mL [facility] Blood 03/27/2019 2:47 PM EDT 03/27/2019 2:53 PM EDT us Kira L Furcolo DO LAB BLOOD BKR ORDERABLES Final Result Performing Organization Address [facility]/ZIP Co de Phone Number [address] [address] documented in this encounter Visit Diagnoses Diagnosis Paresthesia of skin- Primary documented in this encounter Care Teams Night Shift Supervisor Relationship Specialty Start Date End Date Kira Valencia DO [address] [place] [address] PCP - General Internal Medicine 09/02/18 10/24/23 Usha Salgado NP [address] [place] [address] [email or web address] PCP - General Nurse Practitioner 10/25/23 documented as of this encounter Additional Source Comments The information contained in this document represents components of the legal health record. It is not the complete legal health record.[facility]
== END ==
LOC: HO.NUCMED 07:46
PROVIDERS: PCP Nurse Practitioner Adult Health; Visit Provider Nurse Practitioner
DX: R68.81 Early satiety (principal); R10.10 Upper abdominal pain, unspecified
CPT/HCPCS: 78264; A9541